=== PATIENT | female | born 1955 | race Caucasian/White ===

== ENCOUNTER 2022-06-20 11:43 | Outpatient (CLI) | payer MEDICARE, BC, OTHER ==
[2022-06-20 12:20] LABS: CREATININE 0.8 mg/dL (0.4-1.0)
[2022-06-20] MEDS ORDERED: GADOBUTROL 10 MMOL/10 ML VIAL ONE (12:35)
--- NOTE | 2022-06-20 17:34 | MRI Report ---
PROCEDURE: ANGIO HEAD WO INDICATIONS: SENSORINEURAL HEARING LOSS TECHNIQUE: Noncontrast axial 3-D [id number] MR angiogram, with 3-dimensional maximum intensity projection (M IP) reformats of the internal carotid arteries and posterior circulation then performed. COMPARISON: Correlation is made with the accompanying brain MRI, IAC protocol FINDINGS: Image quality: Excellent. Anterior circulation: Intracranial internal carotid arteries demonstrate normal size and intralumina l flow signal. The flow within the paired anterior cerebral arteries is normal and symmetric. The f low within the middle cerebral arteries is normal and symmetric. The anterior communicating artery i s seen. No stenoses, occlusions, or aneurysms. Posterior circulation: Visualized portions of the vertebral arteries demonstrate normal caliber, and join to form a normal appearing basilar artery. The flow within the posterior cerebral arteries is normal and symmetric. No stenoses, occlusions, or aneurysms. IMPRESSION: No significant intracranial MR angiogram abnormality is identified. Reviewed by: Tano Delcid MD on 06/20/2022 4:33 PM [facility] Approved by: Tano Delcid MD on 06/20/2022 4:33 PM [facility] Station ID: [id number]
--- NOTE | 2022-06-20 17:41 | MRI Report ---
PROCEDURE: BRAIN WO INDICATIONS: SENSORINEURAL HEARING LOSS, BILATERAL TECHNIQUE: Noncontrast axial T1 spin echo, axial T2 fast spin echo, sagittal and axial FLAIR, coronal T2 fast sp in echo, axial gradient echo, axial diffusion and ADC through the brain. COMPARISON: None. FINDINGS: Image quality: Excellent. CSF Spaces: Basal cisterns are patent. No extra-axial fluid collections. Ventricles are normal in size and shape. Brain: No CPA or IAC mass. No intracranial masses or hemorrhage. Virk/white matter interface is nor mal. Brainstem appears normal. Diffusion-weighted images demonstrate no acute ischemic insult. No chronic ischemic insults. Normal intravascular flow voids are present. Skull and face: Calvarium has normal marrow signal. Orbits appear normal. Sinuses: Sinuses and mastoids are clear. IMPRESSION: No mass in the cerebellopontine angles or internal auditory canals. No other abnormality along the co urse of the 7th/8th cranial nerve complexes explain sensorineural hearing loss. Please note that the patient ultimately refused IV contrast administration after unsuccessful attempts to gain IV access. Reviewed by: Shashi Florence MD on 06/20/2022 4:39 PM [facility] Approved by: Shashi Florence MD on 06/20/2022 4:39 PM [facility] Station ID: [id number]
== END 2022-06-20 11:44 | disposition home or self-care (01) ==
LOC: LAB 11:43 → DI 11:44
PROVIDERS: ATTEND Otolaryngology Otology & Neurotology
DX: H90.3 Sensorineural hearing loss, bilateral (principal)
CPT/HCPCS: 36415; 70544; 70551; 82565; A9585

== ENCOUNTER 2023-03-29 15:17 | Outpatient (CLI) | payer MEDICARE, OTHER ==
--- NOTE | 2023-03-30 11:56 | MRI Report ---
PROCEDURE: LUMBAR SPINE WO INDICATIONS: CERVICAL RADICULOPATHY, LUMBAR RADICULOPATH TECHNIQUE: Noncontrast sagittal T1 spin echo and T2 fast echo, sagittal STIR, axial T2 fast spin echo through th e lumbar spine. COMPARISON: None. FINDINGS: Image quality: Excellent. Alignment and Curvature: There is normal bony alignment. Bone Marrow: Marrow is of normal overall signal. No acute vertebral body compression fractures. Spinal Cord: Conus medullaris terminates at the L1-2 level. Visualized cord demonstrates normal sig nal and size. Paraspinous Soft Tissues: No paravertebral masses. Mild grade 2 fatty infiltration of the paraspino us musculature. T12-L1: Mild bilateral facet hypertrophy. No significant spinal canal stenosis or neuroforaminal amol rowing. L1-L2: Mild bilateral facet hypertrophy. No significant spinal canal stenosis or neural foraminal narrowing. L2-L3: Disc desiccation and mild circumferential disc bulging as well as mild bilateral facet hype rtrophy and buckling of the ligamentum flavum. Findings result in mild narrowing of the spinal canal and [id number] bilateral neural foraminal narrowing. L3-L4: Disc desiccation and mild loss of disc space height with circumferential disc bulging as wel l as moderate bilateral facet hypertrophy, buckling of the ligamentum flavum, and mild prominent epid ural fat. Findings result in moderate to severe narrowing of the spinal canal with effacement of the lateral recesses and moderate to severe right and moderate left neural foraminal narrowing. L4-L5: Disc desiccation and mild circumferential disc bulging as well as bilateral facet hypertroph y and buckling of the ligamentum flavum, which results in [id number] narrowing of the spinal ca nal, effacement of the lateral recesses, and moderate bilateral neural foraminal narrowing. L5-S1: Disc desiccation and loss of vertebral disc bulging as well as mild to moderate bilateral fa cet hypertrophy, which resulted in mild narrowing of the bilateral neural foramina without significan t spinal canal stenosis. IMPRESSION: 1.At L3-4, degenerative changes result in moderate to severe narrowing of the spinal canal, effacemen t of the lateral recesses, moderate to severe right neural foraminal narrowing, and moderate left keke ral foraminal narrowing. 2.Additional multilevel degenerative disc disease and facet hypertrophy as described in detail above report. Neck additional areas of high-grade spinal canal stenosis or high-grade neural foraminal narr owing. Reviewed by: Jose M Moody MD on 03/30/2023 11:55 AM PDT Approved by: Jose M Moody MD on 03/30/2023 11:55 AM PDT Station ID: [id number]
--- NOTE | 2023-03-30 11:57 | MRI Report ---
PROCEDURE: THORACIC SPINE WO INDICATIONS: CERVICAL RADICULOPATHY, LUMBAR RADICULOPATH TECHNIQUE: Noncontrast sagittal T1 spine echo and T2 fast spin echo, sagittal STIR, axial T1 and T2 fast spin ec ho through the thoracic spine. COMPARISON: None. FINDINGS: Image quality: Excellent. Alignment and Curvature: There is normal bony alignment. Bone Marrow: Marrow is of normal overall signal. No acute vertebral body compression fractures. Mil d degenerative changes are seen, most notably at the T4-5 level. Spinal Cord: Visualized spinal cord is normal in size and signal. Paraspinous Soft Tissues: No paravertebral masses. Mild grade 2 fatty infiltration of the paraspinou s musculature. Miscellaneous: On axial images, central canal and foramina appear widely patent at all scanned level s. IMPRESSION: No significant spinal canal stenosis or neural foraminal narrowing in the thoracic spine . Reviewed by: Jose M Moody MD on 03/30/2023 11:55 AM PDT Approved by: Jose M Moody MD on 03/30/2023 11:55 AM PDT Station ID: [id number]
--- NOTE | 2023-03-30 11:57 | MRI Report ---
PROCEDURE: CERVICAL SPINE WO INDICATIONS: CERVICAL RADICULOPATHY, LUMBAR RADICULOPATH TECHNIQUE: Noncontrast sagittal T1 spin echo and T2 fast spin echo, sagittal STIR, foraminal oblique sagittal T2 fast spin echo, and axial gradient echo or T2 fast spin echo through the cervical spine. COMPARISON: None. FINDINGS: Image quality: Excellent. Alignment and Curvature: There is normal bony alignment. Bone Marrow: Marrow demonstrates normal overall signal. Spinal Cord: Visualized spinal cord has normal size and signal. No cerebellar tonsillar herniation. Paraspinous Soft Tissues: No paravertebral masses. Prevertebral soft tissues are normal in thicknes s. C2-C3: Disc desiccation and mild disc bulging without significant spinal canal stenosis or neural fo raminal narrowing. C3-C4: Disc desiccation is seen without significant spinal canal stenosis or neuroforaminal narrowi ng. C4-C5: Disc desiccation is seen as well as mild bilateral uncovertebral joint and facet hypertrophy resulting in mild narrowing of the bilateral neural foramina without significant spinal canal stenosi s. C5-C6: Disc desiccation is seen with mild circumferential disc bulging as well as bilateral uncovert ebral joint and facet hypertrophy. Findings result in mild narrowing of the spinal canal as well as m oderate right and mild left neural foraminal narrowing. C6-C7: Disc desiccation and osteophytes with disc bulge and bilateral vertebral joint and facet hype rtrophy. Findings result in mild bilateral neural foraminal narrowing without significant spinal ashley l stenosis. C7-T1: No significant spinal canal stenosis or neural foraminal narrowing. IMPRESSION: 1.Mild multilevel degenerative disease and uncovertebral joint and facet hypertrophy as described in detail in the body report. 2.No high-grade spinal canal stenosis. 3.Moderate neural foraminal narrowing at the C5-6 level on the right. No high-grade neural foraminal narrowing Reviewed by: Jose M Moody MD on 03/30/2023 11:55 AM PDT Approved by: Jose M Moody MD on 03/30/2023 11:55 AM PDT Station ID: [id number]
--- NOTE | 2023-03-30 12:02 | MRI Report ---
PROCEDURE: PELVIS WO INDICATIONS: LUMBAR RADICULOPATHY, SACRUM TECHNIQUE: Noncontrast axial T1 spin echo and STIR through the bony pelvis. Oblique coronal and sagittal T1 spi n-echo and STIR through the sacrum. COMPARISON: None. FINDINGS: Image quality: Excellent. Lumbosacral plexus: Sacral nerve roots in the lumbosacral plexus appear normal without significant e xtrinsic compression. No soft tissue mass is seen. Piriformis muscles are symmetric. Soft tissues: No presacral masses. No pathologic free pelvic fluid. No visualized adenopathy by si ze criteria. Small right uterine fibroid is noted. A few diverticula are seen in the included colon. No rectal mass identified due to the nondistention. Bones: Marrow is normal in overall signal. Comment degenerative changes are seen in the sacroiliac joints and mild subchondral edema, slightly greater on the right than on the left. No definite signs of sacroiliitis. IMPRESSION: 1.Mild bilateral sacroiliac joint osteoarthrosis, slightly greater on the right than on the left. 2.No presacral mass or extrinsic compression on the lumbosacral plexus. Reviewed by: Jose M Moody MD on 03/30/2023 12:00 PM PDT Approved by: Jose M Moody MD on 03/30/2023 12:00 PM PDT Station ID: [id number]
== END 2023-03-29 15:18 | disposition home or self-care (01) ==
LOC: DI 15:17
DX: M47.26 Other spondylosis with radiculopathy, lumbar region (principal); M47.22 Other spondylosis with radiculopathy, cervical region; M51.16 Intervertebral disc disorders with radiculopathy, lumbar region; M48.061 Spinal stenosis, lumbar region without neurogenic claudication; M50.11 Cervical disc disorder with radiculopathy, high cervical region; M48.02 Spinal stenosis, cervical region; M47.28 Other spondylosis with radiculopathy, sacral and sacrococcygeal region